=== PATIENT | female | born 1980 | race Caucasian/White ===

== ENCOUNTER 2016-07-23 12:24 | Emergency (ER) | payer OTHER ==
[~2016-07-23] VITALS: Ht 167.6 cm; Wt 124.7 kg
[~2016-07-23 12:24] MED LIST: ASMANEX220 MCG INH; B COMPLEX & B121 TAB PO; BRIN10TA PO; CLARITIN10 MG PO; CYMBALTA60 MG PO; DARVOCET N 1001 TAB PO; DAYPRO600 M1 PO; DIFLUCAN200 MG PO; FLEXERIL10 MG PO; Fioricet 325 MG1 TAB PO; HYDROCODONE BIT1 T11 PO; K-DUR 20MEQ20 MEQ PO; KEFLEX500 MG PO; KLONOPIN2 MG PO; LASIX40 MG PO; MODAFINIL PO; MOTRIN800 MG PO; OXYCODONE5 MG PO; PERCOCET 325 MG1 TA2 PO; PREDNICOT20 MG PO; PRILOSEC20 MG PO; PROAIR HFA0.09 MG/AC IH; PROVIGIL200 MG PO; Phenergan25 MG PO; ROBAXIN750 MG PO; SAVELLA50 MG PO; SEROQUEL400 MG PO; TAMIFLU75 MG PO; ULTRAM50 MG PO; VICODIN 5/500 505 MG PO; VIIBRYD40 PO; XANAX1 MG PO; ZANTAC150 MG PO; ZITHROMAX Z PA250 MG PO; ZOFRAN ODT4 MG PO
[2016-07-23 12:31] VITALS: BP 134/80
[2016-07-23] MEDS ORDERED: Motrin,Rufen800 MG PO (14:37)
== END 2016-07-23 14:26 | disposition home or self-care (01) ==
LOC: ED 12:24
DX: S93.401A Sprain of unspecified ligament of right ankle, initial encounter (principal); F17.200 Nicotine dependence, unspecified, uncomplicated; Z88.1 Allergy status to other antibiotic agents; Z88.6 Allergy status to analgesic agent; Z79.899 Other long term (current) drug therapy; W01.0XXA Fall on same level from slipping, tripping and stumbling without subsequent striking against object, initial encounter; Y93.89 Activity, other specified; Y92.096 Garden or yard of other non-institutional residence as the place of occurrence of the external cause; Y99.9 Unspecified external cause status

== ENCOUNTER → 2016-10-06 | Outpatient (CLI) | payer OTHER ==
[~2016-10-06] MED LIST changes: +Motrin,Rufen800 MG PO
[2016-10-06 13:40] LABS: BASO # 0.1 10*3/uL (0.0-0.1); BASO % 0.7 % (0.0-1.0); EOS # 0.3 10*3/uL (0.0-0.4); HEMATOCRIT 40.1 % (37.0-47.0); LYMPH # 3.1 10*3/uL (1.3-4.4); LYMPH % 33.3 % (27.0-41.0); MEAN CELL VOLUME 91.3 fl (81.0-99.0); MEAN CORPUSCULAR HGB 31.9 pg (27.0-31.0); MEAN CORPUSCULAR HGB CONC 34.9 g/dl (33.0-37.0); MEAN PLATELET VOLUME 10.2 fl (9.6-12.3); MONO # 0.9 10*3/uL (0.1-1.0); MONO % 9.3 % (3.0-9.0); NEUT # 4.9 10*3/uL (2.3-7.9); NEUT % 53.5 % (47.0-73.0); PLATELET COUNT AUTOMATED 251 10*3/uL (130-400); RED BLOOD COUNT 4.39 10*6/uL (4.10-5.10); RED CELL DISTRI WIDTH 12.2 % (0-14.5); WHITE BLOOD COUNT 9.2 10*3/uL (4.8-10.8)
[2016-10-06 14:06] LABS: ALBUMIN 3.6 gm/dl (3.1-4.5); ALKALINE PHOSPHATASE 77 U/L (45-117); BILIRUBIN, TOTAL 0.4 mg/dl (0.2-1.0); BUN 9 mg/dl (7-24); C-REACTIVE PROTEIN 0.97 MG/DL (0-0.3); CARBON DIOXIDE 28 mmol/L (21-32); CHLORIDE 106 mmol/L (98-107); EST GLOM FILT AFRICAN AMERICAN > 60 ml/min; GLUCOSE 93 mg/dL (65-99); POTASSIUM 3.6 mmol/L (3.5-5.1); SGOT/AST 22 IU/L (3-35); SGPT/ALT 31 U/L (12-78); SODIUM 139 mmol/L (136-145); TOTAL PROTEIN 7.2 gm/dL (6.4-8.2)
[2016-10-07 08:11] LABS: RHEUMATOID ARTHRITIS FACTOR <10.0 IU/mL (0.0-13.9)
== END | disposition home or self-care (01) ==
LOC: LAB 13:17
PROVIDERS: Specialist
DX: M76.60 Achilles tendinitis, unspecified leg (principal); M25.551 Pain in right hip; M25.552 Pain in left hip; R20.0 Anesthesia of skin; R53.1 Weakness

== ENCOUNTER → 2016-12-03 | Outpatient (CLI) | payer OTHER | END | disposition home or self-care (01) | LOC: MRI 12-02 10:00 | DX: S93.401A Sprain of unspecified ligament of right ankle, initial encounter (principal); M19.071 Primary osteoarthritis, right ankle and foot; M65.861 Other synovitis and tenosynovitis, right lower leg; X58.XXXA Exposure to other specified factors, initial encounter; Y93.89 Activity, other specified; Y92.89 Other specified places as the place of occurrence of the external cause; Y99.8 Other external cause status ==

== ENCOUNTER → 2017-03-23 | Outpatient (CLI) | payer OTHER | END | disposition home or self-care (01) | LOC: US 07:30 | DX: N63.10 Unspecified lump in the right breast, unspecified quadrant (principal); M25.552 Pain in left hip; M79.7 Fibromyalgia ==

== ENCOUNTER → 2017-03-31 | Outpatient (CLI) | payer OTHER | END | disposition home or self-care (01) | LOC: MAMMO 13:30 | DX: N64.4 Mastodynia (principal); R92.8 Other abnormal and inconclusive findings on diagnostic imaging of breast ==

== ENCOUNTER 2017-05-11 12:54 | Emergency (ER) | payer OTHER ==
[~2017-05-11] VITALS: Ht 167.6 cm; Wt 129.7 kg
[2017-05-11] MEDS ORDERED: ROBAXIN-750750 MG PO (13:04)
[2017-05-11] MEDS ORDERED: FLOVENT HFA12 G1 INH (13:04)
[2017-05-11] MEDS ORDERED: LYRICA100 M1 PO (13:05)
[2017-05-11] MEDS ORDERED: BUSPIRONE10 MG PO (13:05)
[2017-05-11] MEDS ORDERED: PROVIGIL200 MG PO (13:06)
[2017-05-11] MEDS ORDERED: VITAMIN D50000 UNIT PO (13:11)
[2017-05-11] MEDS ORDERED: ALLOPURINOL100 MG PO (13:11)
[2017-05-11] MEDS ORDERED: TRINTELLIX20 MG PO (13:12)
[2017-05-11 15:08] VITALS: BP 105/47
== END 2017-05-11 15:25 | disposition home or self-care (01) ==
LOC: ED 12:54
DX: M54.5 Low back pain (principal); G89.29 Other chronic pain; Z79.82 Long term (current) use of aspirin; Z88.6 Allergy status to analgesic agent; Z88.5 Allergy status to narcotic agent; Z79.899 Other long term (current) drug therapy; Z90.710 Acquired absence of both cervix and uterus

== ENCOUNTER → 2017-08-25 | Outpatient (CLI) | payer OTHER ==
[~2017-08-25] MED LIST changes: +ALLOPURINOL100 MG PO; +BUSPIRONE10 MG PO; +FLOVENT HFA12 G1 INH; +LYRICA100 M1 PO; +ROBAXIN-750750 MG PO; +TRINTELLIX20 MG PO; +VITAMIN D50000 UNIT PO
== END | disposition home or self-care (01) ==
LOC: RAD 17:41
DX: M25.511 Pain in right shoulder (principal)

== ENCOUNTER → 2017-12-30 | Outpatient (CLI) | payer OTHER ==
[2017-12-30 10:08] LABS: ALBUMIN 3.6 gm/dl (3.1-4.5); ALKALINE PHOSPHATASE 59 U/L (45-117); BUN 9 mg/dl (7-24); CHLORIDE 102 mmol/L (98-107); CHOLESTEROL 171 mg/dL (<200); CREATININE 1.05 mg/dL (0.55-1.02); HDL CHOLESTEROL 43 mg/dl (40-60); LDL CHOLESTEROL 102 mg/dL (9-159); SGOT/AST 64 IU/L (3-35); SGPT/ALT 37 U/L (12-78); SODIUM 137 mmol/L (136-145); TOTAL PROTEIN 6.6 gm/dL (6.4-8.2); TRIGLYCERIDES 130 mg/dl (<150); VLDL CHOLESTEROL 26 mg/dL (6-40)
== END | disposition home or self-care (01) ==
LOC: CT 08:00 → LAB 08:08
PROVIDERS: Family Medicine
DX: K76.0 Fatty (change of) liver, not elsewhere classified (principal); E78.1 Pure hyperglyceridemia

== ENCOUNTER 2018-04-06 23:35 | Emergency (ER) | payer OTHER ==
[~2018-04-06] VITALS: Ht 167.6 cm; Wt 128.8 kg
[2018-04-06 23:37] VITALS: BP 140/75
== END 2018-04-07 00:59 | disposition home or self-care (01) ==
LOC: ED 23:35
DX: M62.831 Muscle spasm of calf (principal); M79.661 Pain in right lower leg; Z88.6 Allergy status to analgesic agent; Z88.8 Allergy status to other drugs, medicaments and biological substances; Z79.899 Other long term (current) drug therapy; X58.XXXA Exposure to other specified factors, initial encounter; Y93.89 Activity, other specified; Y92.89 Other specified places as the place of occurrence of the external cause; Y99.8 Other external cause status

== ENCOUNTER → 2018-04-21 | Outpatient (CLI) | payer OTHER ==
[~2018-04-21] MED LIST changes: +ANTIBIOTIC28.4 GM T; +CEPHALEXIN500 M1 PO
== END | disposition home or self-care (01) ==
LOC: US 14:35
DX: M79.604 Pain in right leg (principal)

== ENCOUNTER 2018-06-02 15:22 | Emergency (ER) | payer OTHER ==
[~2018-06-02] VITALS: Ht 167.6 cm; Wt 128.8 kg
[~2018-06-02 15:22] MED LIST changes: -ANTIBIOTIC28.4 GM T; -CEPHALEXIN500 M1 PO
[2018-06-02 15:25] VITALS: BP 150/71
== END 2018-06-02 20:42 | disposition home or self-care (01) ==
LOC: ED 15:22
DX: M54.12 Radiculopathy, cervical region (principal); G89.29 Other chronic pain; G62.9 Polyneuropathy, unspecified; Z90.710 Acquired absence of both cervix and uterus; Z88.6 Allergy status to analgesic agent; Z88.1 Allergy status to other antibiotic agents; Z79.899 Other long term (current) drug therapy

== ENCOUNTER 2018-10-01 11:03 | Emergency (ER) | payer OTHER ==
[~2018-10-01] VITALS: Ht 167.6 cm; Wt 124.3 kg
[2018-10-01 11:06] VITALS: BP 117/75
[2018-10-01] MEDS ORDERED: CEPHALEXIN500 M1 PO (11:33)
[2018-10-01] MEDS ORDERED: ANTIBIOTIC28.4 GM T (11:33)
== END 2018-10-01 11:41 | disposition home or self-care (01) ==
LOC: ED 11:03
DX: S61.214A Laceration without foreign body of right ring finger without damage to nail, initial encounter (principal); J44.9 Chronic obstructive pulmonary disease, unspecified; Z23 Encounter for immunization; Z88.6 Allergy status to analgesic agent; Z88.1 Allergy status to other antibiotic agents; Z88.8 Allergy status to other drugs, medicaments and biological substances; Z79.899 Other long term (current) drug therapy; Z90.710 Acquired absence of both cervix and uterus; W26.8XXA Contact with other sharp object(s), not elsewhere classified, initial encounter; Y93.89 Activity, other specified; Y92.89 Other specified places as the place of occurrence of the external cause; Y99.8 Other external cause status

== ENCOUNTER 2018-11-18 17:03 | Emergency (ER) | payer OTHER ==
[~2018-11-18] VITALS: Ht 167.6 cm; Wt 123.8 kg
[2018-11-18 17:03] VITALS: BP 128/81
[~2018-11-18 17:03] MED LIST changes: +ANTIBIOTIC28.4 GM T; +CEPHALEXIN500 M1 PO
[2018-11-18] MEDS ORDERED: PREDNISONE50 MG PO (19:30)
== END 2018-11-18 19:54 | disposition home or self-care (01) ==
LOC: ED 17:03
DX: M54.41 Lumbago with sciatica, right side (principal); M54.42 Lumbago with sciatica, left side; G89.29 Other chronic pain; J44.9 Chronic obstructive pulmonary disease, unspecified; L40.9 Psoriasis, unspecified; M79.7 Fibromyalgia; Z88.6 Allergy status to analgesic agent; Z88.1 Allergy status to other antibiotic agents; Z88.8 Allergy status to other drugs, medicaments and biological substances; Z79.2 Long term (current) use of antibiotics; Z79.899 Other long term (current) drug therapy; Z90.710 Acquired absence of both cervix and uterus

== ENCOUNTER 2019-03-12 00:42 | Observation (INO) | payer OTHER ==
[~2019-03-12] VITALS: Ht 167.6 cm; Wt 127.7 kg
[~2019-03-12 00:42] MED LIST changes: +PREDNISONE50 MG PO
[2019-03-12 01:02] LABS: HEMATOCRIT 39.9 % (37.0-47.0); HEMOGLOBIN 13.7 g/dl (12.0-16.0); MEAN CELL VOLUME 91.5 fl (81.0-99.0); MEAN CORPUSCULAR HGB 31.4 pg (27.0-31.0); MEAN CORPUSCULAR HGB CONC 34.3 g/dl (33.0-37.0); MEAN PLATELET VOLUME 10.1 fl (9.6-12.3); PLATELET COUNT AUTOMATED 252 10*3/uL (130-400); RED BLOOD COUNT 4.36 10*6/uL (4.10-5.10); RED CELL DISTRI WIDTH 12.3 % (0-14.5); WHITE BLOOD COUNT 12.3 10*3/uL (4.8-10.8)
[2019-03-12 01:15] LABS: ACT PARTIAL THROMBO TIME 25.9 SECONDS (20.0-32.1); INTERNATIONAL NORM RATIO 0.9 (2.0-3.5)
[2019-03-12 01:19] LABS: ALBUMIN 3.6 gm/dl (3.1-4.5); ALKALINE PHOSPHATASE 63 U/L (45-117); BUN 11 mg/dl (7-24); CHLORIDE 106 mmol/L (98-107); POTASSIUM 3.2 mmol/L (3.5-5.1); SGOT/AST 14 IU/L (3-35); SGPT/ALT 28 U/L (12-78); SODIUM 142 mmol/L (136-145); TOTAL PROTEIN 6.9 gm/dL (6.4-8.2)
[2019-03-12 01:38] LABS: ATYPICAL LYMPHS 2 % (0-0); BASOPHILS 1 % (0-1); PLATELET SUFFICIENCY NORMAL (NORMAL); TOTAL CELLS COUNTED 100 #CELLS
[2019-03-12 01:48] LABS: TROPONIN I < 0.015 ng/ml (<0.045)
[2019-03-12 02:14] VITALS: BP 108/52
[2019-03-12 05:01] VITALS: BP 104/48
--- NOTE | 2019-03-12 05:39 | NUR ---
A 39, admitted to , under the services of BALAJI Zheng DO with a diagnosis of PALPITATIONS. Chief complaint is PALPITATIONS. Patient arrived via wheel chair from ER. Monitor applied. Initial assessment completed. Vital signs taken and recorded. BALAJI ZHENG DO notified of admission to the unit. Orders received. See assessment for past medical history, medications and allergies. Patient and/or family oriented to unit. [facility] visitation policy reviewed. Clothing/patient valuable form completed. [place]
[2019-03-12] MEDS ORDERED: VITAMIN D-32000 UNI1 PO (05:47)
[2019-03-12] MEDS ORDERED: TRAZODONE100 MG PO (05:49)
[2019-03-12] MEDS ORDERED: VENT7GM INH (05:50)
[2019-03-12] MEDS ORDERED: LAMOTRIGINE100 MG PO (05:50)
[2019-03-12] MEDS ORDERED: ATARAX,VISTARIL50 MG PO (05:51)
[2019-03-12] MEDS ORDERED: TUMS200 MG PO (05:52)
[2019-03-12] MEDS ORDERED: ZANTAC 150150 MG PO (05:52)
--- NOTE | 2019-03-12 05:53 | NUR ---
MED REC UPDATED WITH PATIENT ALERT AND ORIENTED. [employer] AT BEDSIDE.
[2019-03-12 06:00] VITALS: BP 107/63
[2019-03-12 08:00] VITALS: BP 110/76
[2019-03-12 12:00] VITALS: BP 138/81
--- NOTE | 2019-03-12 12:55 | NUR ---
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 WILL ATTEMPT TO SPEAK WITH HER AT A LATER TIME. -YAMILEX HERNANDEZ
[2019-03-12] MEDS ORDERED: PANTOPRAZOLE SO40 MG PO (15:09)
--- NOTE | 2019-03-12 16:13 | NUR ---
Discharge instructions reviewed with patient/family. Patient receptive and verbalizes understanding. Follow-up care arranged. Written instructions given to patient/family. RONN AVERY
== END 2019-03-12 16:13 | disposition home or self-care (01) ==
LOC: ED 00:42 → 4E 04:50 → EDHOLD 04:50 → 4E 05:26
PROVIDERS: Emergency Medicine Emergency Medical Services; ADMIT Family Medicine
DX: R07.89 Other chest pain (principal); A41.9 Sepsis, unspecified organism; R00.2 Palpitations; E87.6 Hypokalemia; R06.82 Tachypnea, not elsewhere classified; D72.829 Elevated white blood cell count, unspecified; N17.0 Acute kidney failure with tubular necrosis; R73.9 Hyperglycemia, unspecified; B27.90 Infectious mononucleosis, unspecified without complication; E44.1 Mild protein-calorie malnutrition; F17.210 Nicotine dependence, cigarettes, uncomplicated; M54.41 Lumbago with sciatica, right side; M10.9 Gout, unspecified

== ENCOUNTER → 2020-03-28 | Outpatient (CLI) | payer OTHER ==
[~2020-03-28] MED LIST changes: +ATARAX,VISTARIL50 MG PO; +LAMOTRIGINE100 MG PO; +PANTOPRAZOLE SO40 MG PO; +TRAZODONE100 MG PO; +TUMS200 MG PO; +VENT7GM INH; +VITAMIN D-32000 UNI1 PO; +ZANTAC 150150 MG PO
[2020-03-28 11:03] LABS: BASO # 0.1 10*3/uL (0.0-0.1); BASO % 0.5 % (0.0-1.0); EOS # 0.4 10*3/uL (0.0-0.4); EOS % 3.5 % (1.0-4.0); HEMATOCRIT 40.7 % (37.0-47.0); LYMPH # 3.6 10*3/uL (1.3-4.4); LYMPH % 32.8 % (27.0-41.0); MEAN CELL VOLUME 93.3 fl (81.0-99.0); MEAN CORPUSCULAR HGB 32.1 pg (27.0-31.0); MEAN CORPUSCULAR HGB CONC 34.4 g/dl (33.0-37.0); MEAN PLATELET VOLUME 10.6 fl (9.6-12.3); MONO # 1.1 10*3/uL (0.1-1.0); MONO % 10.4 % (3.0-9.0); NEUT # 5.7 10*3/uL (2.3-7.9); NEUT % 52.5 % (47.0-73.0); PLATELET COUNT AUTOMATED 252 10*3/uL (130-400); RED BLOOD COUNT 4.36 10*6/uL (4.10-5.10); WHITE BLOOD COUNT 10.9 10*3/uL (4.8-10.8)
[2020-03-28 11:27] LABS: BUN 12 mg/dl (7-24); CHLORIDE 107 mmol/L (98-107); CREATININE 1.01 mg/dL (0.55-1.02); POTASSIUM 4.1 mmol/L (3.5-5.1); SODIUM 139 mmol/L (136-145)
== END | disposition home or self-care (01) ==
LOC: LAB 10:21
PROVIDERS: ATTEND Internal Medicine Cardiovascular Disease
DX: I10 Essential (primary) hypertension (principal)

== ENCOUNTER → 2020-05-09 | Outpatient (CLI) | payer OTHER | END | disposition home or self-care (01) | LOC: RAD 13:45 | PROVIDERS: ATTEND Orthopaedic Surgery | DX: M79.671 Pain in right foot (principal) ==

== ENCOUNTER → 2020-06-26 | Outpatient (CLI) | payer OTHER | END | disposition home or self-care (01) | LOC: CARD 09:00 | PROVIDERS: ATTEND Internal Medicine Cardiovascular Disease | DX: R00.1 Bradycardia, unspecified (principal) ==

== ENCOUNTER → 2021-05-02 | Outpatient (CLI) | payer OTHER | END | disposition home or self-care (01) | LOC: CARD 13:00 | PROVIDERS: ATTEND Internal Medicine Cardiovascular Disease | DX: I08.1 Rheumatic disorders of both mitral and tricuspid valves (principal) ==

== ENCOUNTER → 2023-09-04 | Outpatient (CLI) | payer OTHER | END | disposition home or self-care (01) | LOC: LAB 12:35 | PROVIDERS: ATTEND Nurse Practitioner Family | DX: R30.0 Dysuria (principal) ==

== ENCOUNTER 2024-10-30 02:33 | Emergency (ER) | payer OTHER ==
[~2024-10-30] VITALS: Wt 133.8 kg
[2024-10-30 04:31] LABS: BILIRUBIN Negative (Negative); BLOOD Negative (Negative); CLARITY Cloudy (Clear); COLOR Yellow (Yellow); KETONE Trace (Negative); LEUKO ESTERASE Negative (Negative); NITRITE Negative (Negative); PH 6.0 (4.5-8.0); SPECIFIC GRAVITY 1.025 (1.001-1.030); UROBILINOGEN 1.0 E.U./dl (0.0-1.0)
[2024-10-30 04:45] LABS: BACTERIA 1+; MUCOUS TRACE; RBC 0-2 rbc/hpf (0-2); WBC 0-2 wbc/hpf (0-5)
[2024-10-30] MEDS ORDERED: Cyclobenzaprine Hydrochlorid 10 MG TAB PO ONE (06:20)
[2024-10-30] MEDS ORDERED: Ondansetron Hydrochloride 4 MG TAB SL ONE ×2 (06:20→07:45)
[2024-10-30] MEDS ORDERED: Dexamethasone Sodium Phospha 20 MG/5 ML VIAL IM ONE (09:20)
[2024-10-30] MEDS ORDERED: diazePAM 5 MG TAB PO ONE (09:20)
[2024-10-30 09:38] VITALS: BP 110/47
[2024-10-30] MEDS ORDERED: VALIUM5 MG PO (09:46)
[2024-10-30] MEDS ORDERED: PREDNISONE20 M1 PO (09:46)
== END 2024-10-30 10:02 | disposition home or self-care (01) ==
LOC: ED 02:33
PROVIDERS: Internal Medicine
DX: M54.6 Pain in thoracic spine (principal); G89.29 Other chronic pain; R10.9 Unspecified abdominal pain; F41.9 Anxiety disorder, unspecified; J44.9 Chronic obstructive pulmonary disease, unspecified; F31.9 Bipolar disorder, unspecified; G47.30 Sleep apnea, unspecified; Z98.890 Other specified postprocedural states; Z90.710 Acquired absence of both cervix and uterus